=== PATIENT | male | born 1945 | race Caucasian/White ===

== ENCOUNTER 2019-11-27 19:33 | Emergency (ER) | payer MEDICARE, BC ==
[2019-11-27 19:39] VITALS: TEMP 98.9
[2019-11-27 19:52] LABS: Glucose,Whole Blood 135 mg/dL (75-99)
[2019-11-27] MEDS ORDERED: SODIUM CHLORIDE 0.9% 1,000 ML IV STA (19:54)
--- NOTE | 2019-11-27 20:08 | ED ---
Weakness HPI - General Chief complaint: Weakness Stated complaint: Stroke Symptoms Time Seen by Provider: 11/27/19 19:44 Source: patient Mode of arrival: wheelchair Limitations: no limitations - History of Present Illness Initial comments: 74-year-old male patient presents to the emergency department today for evaluation of generalized weakness. Patient has been becoming more progressively weak over the last 3-4 days. states that he was barely able to ambulate to the house with a walker today states that it took the patient 30 minutes to get from his chair to the bathroom which is a very short distance. States just prior to arrival patient was unable to get out of the chair on his own. Patient states that he feels generally weak. Denies any focal or unilateral weakness. states his appetite has been decreased has not been eating or drinking. States he has not had a bowel movement in the last 7 days. Patient denies any recent rash, fever, chills, cough, shortness of breath, chest pain, abdominal pain, nausea, vomiting, diarrhea, constipation, back pain, numbness, tingling, dizziness, hematuria, dysuria, urinary urgency, urinary frequency, headache, visual changes, or any other complaints. Patient did see his primary care physician yesterday and had labs drawn. Reportedly there were no major abnormalities. Patient was advised by his neurologist to be evaluated in the emergency department. Patient did have a fall at the beginning of October, patient was evaluated at [facility] and admitted over night. - Related Data Allergies Allergy/AdvReac Type Severity Reaction Status Date / Time No Known Allergies Allergy Verified 11/27/19 19:39 Review of Systems ROS Statement: Those systems with pertinent positive or pertinent negative responses have been documented in the HPI. ROS Other: All systems not noted in ROS Statement are negative. Past Medical History Past Medical History: Cancer, Diabetes Mellitus, Hypertension Additional Past Medical History / Comment(s): parkinsons, prostate cancer History of Any Multi-Drug Resistant Organisms: None Reported Additional Past Surgical History / Comment(s): prostate cancer surgery. Smoking Status: Never smoker Past Alcohol Use History: None Reported Past Drug Use History: None Reported General Exam Limitations: no limitations General appearance: alert, in no apparent distress, other (This is a well- developed, well-nourished adult male patient in no acute distress. Vital signs upon presentation are temperature 98.9F, pulse 83, respirations 18, blood pressure 125/82, pulse ox 97% on room air.) Eye exam: Present: normal appearance, PERRL, EOMI. Absent: scleral icterus, conjunctival injection, periorbital swelling ENT exam: Present: normal exam, normal oropharynx, mucous membranes moist Respiratory exam: Present: normal lung sounds bilaterally. Absent: respiratory distress, wheezes, rales, rhonchi, stridor Cardiovascular Exam: Present: regular rate, normal rhythm, normal heart sounds. Absent: systolic murmur, diastolic murmur, rubs, gallop, clicks Neurological exam: Present: alert, oriented X3, CN II-XII intact Expanded Motor strength exam: RUE: 2/1, LUE: 3, RLE: 3, LLE: 3 Eye Response: (4) open spontaneously Motor Response: (6) obeys commands Verbal Response: (5) oriented Psychiatric exam: Present: normal affect, normal mood Skin exam: Present: warm, dry, intact, normal color. Absent: rash Course Vital Signs 11/27/19 19:34 Temperature 98.9 F Pulse Rate 83 Respiratory 18 Rate Blood Pressure 125/82 O2 Sat by Pulse 97 Oximetry Medical Decision Making - Medical Decision Making 74-year-old male patient presents to the emergency department today for evaluation of generalized weakness. Physical examination did reveal right arm weakness and generalized weakness. Patient does have a history of Parkinson's disease, states his right arm deficit is related to this. Labs reviewed and did reveal elevated white blood cell count, elevated lactic acid, low ma gnesium. Low sodium. Lactic acid is all due to dehydration as patient has had decreased food and fluid intake over the last several days. He does not have any fever or infectious symptoms. X-ray shows no acute cardiopulmonary process. KUB was unremarkable. CT brain was obtained and did show evidence of acute on chronic subdural hemorrhage with no mass effect or midline shift. Patient will be transferred to [facility] with home, accepting physician is Dr. Ray, and is agreeable. - Lab Data Result diagrams: 11/27/19 19:50 11/27/19 19:50 Lab Results 11/27/19 11/27/19 11/27/19 Range/Units 19:49 19:50 19:50 WBC 13.3 H (3.8-10.6) k/uL RBC 5.02 (4.30-5.90) m/uL Hgb 15.5 (13.0-17.5) gm/dL Hct 45.0 (39.0-53.0) % MCV 89.6 (80.0-100.0) fL MCH 30.9 (25.0-35.0) pg MCHC 34.5 (31.0-37.0) g/dL RDW 12.8 (11.5-15.5) % Plt Count 184 (150-450) k/uL Neutrophils % 66 % Lymphocytes % 21 % Monocytes % 9 % Eosinophils % 0 % Basophils % 0 % Neutrophils # 8.8 H (1.3-7.7) k/uL Lymphocytes # 2.8 (1.0-4.8) k/uL Monocytes # 1.2 H (0-1.0) k/uL Eosinophils # 0.0 (0-0.7) k/uL Basophils # 0.0 (0-0.2) k/uL PT 10.8 (9.0-12.0) sec INR 1.0 (<1.2) APTT 23.5 (22.0-30.0) sec Sodium (137-145) mmol/L Potassium (3.5-5.1) mmol/L Chloride (98-107) mmol/L Carbon Dioxide (22-30) mmol/L Anion Gap mmol/L BUN (9-20) mg/dL Creatinine (0.66-1.25) mg/dL Est GFR (CKD-EPI)AfAm (>60 ml/min/1.73 sqM) Est GFR (CKD-EPI)NonAf (>60 ml/min/1.73 sqM) Glucose (74-99) mg/dL POC Glucose (mg/dL) 135 H (75-99) mg/dL POC Glu Roofer Helper ID Abbasi, Janine Plasma Lactic Acid Victor Manuel (0.7-2.0) mmol/L Calcium (8.4-10.2) mg/dL Magnesium (1.6-2.3) mg/dL Total Bilirubin (0.2-1.3) mg/dL AST (17-59) U/L ALT (4-49) U/L Alkaline Phosphatase (38-126) U/L Troponin I (0.000-0.034) ng/mL Total Protein (6.3-8.2) g/dL Albumin (3.5-5.0) g/dL 11/27/19 11/27/19 11/27/19 Range/Units 19:50 19:50 19:50 WBC (3.8-10.6) k/uL RBC (4.30-5.90) m/uL Hgb (13.0-17.5) gm/dL Hct (39.0-53.0) % MCV (80.0-100.0) fL MCH (25.0-35.0) pg MCHC (31.0-37.0) g/dL RDW (11.5-15.5) % Plt Count (150-450) k/uL Neutrophils % % Lymphocytes % % Monocytes % % Eosinophils % % Basophils % % Neutrophils # (1.3-7.7) k/uL Lymphocytes # (1.0-4.8) k/uL Monocytes # (0-1.0) k/uL Eosinophils # (0-0.7) k/uL Basophils # (0-0.2) k/uL PT (9.0-12.0) sec INR (<1.2) APTT (22.0-30.0) sec Sodium 130 L (137-145) mmol/L Potassium 4.4 (3.5-5.1) mmol/L Chloride 95 L (98-107) mmol/L Carbon Dioxide 22 (22-30) mmol/L Anion Gap 13 mmol/L BUN 16 (9-20) mg/dL Creatinine 0.61 L (0.66-1.25) mg/dL Est GFR (CKD-EPI)AfAm >90 (>60 ml/min/1.73 sqM) Est GFR (CKD-EPI)NonAf >90 (>60 ml/min/1.73 sqM) Glucose 118 H (74-99) mg/dL POC Glucose (mg/dL) (75-99) mg/dL POC Glu Roofer Helper ID Plasma Lactic Acid Victor Manuel 2.2 H* (0.7-2.0) mmol/L Calcium 9.3 (8.4-10.2) mg/dL Magnesium 1.4 L (1.6-2.3) mg/dL Total Bilirubin 1.1 (0.2-1.3) mg/dL AST 19 (17-59) U/L ALT 8 (4-49) U/L Alkaline Phosphatase 91 (38-126) U/L Troponin I <0.012 (0.000-0.034) ng/mL Total Protein 7.4 (6.3-8.2) g/dL Albumin 4.4 (3.5-5.0) g/dL - EKG Data -: EKG Interpreted by [facility] EKG Comments: EKG obtained at 1944 shows sinus rhythm with occasional PVCs. Ventricular rate is 64, AR interval 186, QRS duration 108, QT 396, QTc 408. No evidence of ST elevation or depression. - Radiology Data Radiology results: report reviewed, image reviewed CT brain without contrast was obtained. Report is reviewed in its entirety. Impression by Dr. 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 2 views of the chest are obtained. Report is reviewed in its entirety. Impression by Dr. Miguel shows poor inspiration. No active cardiopulmonary disease. KUB x-ray was obtained. Report was reviewed in its entirety. Impression by Dr. Miguel shows nonacute abdomen. Disposition Clinical Impression: Subdural hemorrhage Disposition: OTHER INSTITUTION NOT DEFINED Condition: Serious Referrals: Tana Vitale MD [Primary Care Provider] - 1-2 days - Out of Hospital Transfer - Req. Specs Out of Hospital Transfer - Requested Specifics: Other Emergency Center ([facility])
--- NOTE | 2019-11-27 20:25 | XR ---
EXAMINATION TYPE: XR KUB DATE OF EXAM: 11/27/2019 COMPARISON: NONE HISTORY: Weakness TECHNIQUE: 2 views FINDINGS: 2 views supine were obtained. Bowel gas pattern is normal. There is no sign of intestinal o bstruction or pneumoperitoneum. Fecal pattern is normal. There is no evidence of a mass. There are nu merous surgical clips at the floor the pelvis. There are no pathologic calcifications over the kidney s. IMPRESSION: Nonacute abdomen.
--- NOTE | 2019-11-27 20:27 | XR ---
EXAMINATION TYPE: XR chest 2V DATE OF EXAM: 11/27/2019 COMPARISON: NONE HISTORY: Weakness TECHNIQUE: 2 views FINDINGS: There is no heart failure nor confluent pneumonic infiltrate. Costophrenic angles are clear . There is poor inspiration. There are chest leads. Bony thorax is intact. IMPRESSION: Poor inspiration. No active cardiopulmonary disease.
[2019-11-27 21:12] LABS: Basophils % (A) 0 %; Eosinophils % (A) 0 %; HGB 15.5 gm/dL (13.0-17.5); Lymphocytes # (A) 2.8 k/uL (1.0-4.8); Lymphocytes % (A) 21 %; MCH 30.9 pg (25.0-35.0); MCHC 34.5 g/dL (31.0-37.0); MCV 89.6 fL (80.0-100.0); Mean Platelet Volume 8.1; Monocytes # (A) 1.2 k/uL (0-1.0); Monocytes % (A) 9 %; Neutrophils # (A) 8.8 k/uL (1.3-7.7); Neutrophils % (A) 66 %; Platelet Count 184 k/uL (150-450); RBC 5.02 m/uL (4.30-5.90); RDW 12.8 % (11.5-15.5); WBC 13.3 k/uL (3.8-10.6)
--- NOTE | 2019-11-27 21:12 | CT ---
EXAMINATION TYPE: CT brain wo con DATE OF EXAM: 11/27/2019 COMPARISON: HISTORY: Weakness. History of TIA. CT DLP: 1103.4 mGycm Automated exposure control for dose reduction was used. There is widening of the subdural space over both frontal and parietal lobe convexities. This is most ly low density fluid. There are smaller areas of higher attenuation that is suggestive of small amoun t of bilateral acute subdural hemorrhage. The fluid measures up to 1.4 cm in thickness. There is no m idline shift. There is cerebral cortical atrophy. Ventricles have normal size. There is no evidence o f posterior fossa mass. Calvarium is intact. IMPRESSION: Bilateral subdural hygromas with evidence of acute and chronic bilateral subdural hemorrhage. Exam wa s discussed with Dr. Abad at 9:15 PM.
[2019-11-27 21:18] LABS: ALT 8 U/L (4-49); AST 19 U/L (17-59); African American GFR (CKD) >90 (>60 ml/min/1.73 sqM); Albumin 4.4 g/dL (3.5-5.0); Alkaline Phosphatase 91 U/L (38-126); Anion Gap 13 mmol/L; Blood Urea Nitrogen 16 mg/dL (9-20); Calcium 9.3 mg/dL (8.4-10.2); Carbon Dioxide 22 mmol/L (22-30); Chloride 95 mmol/L (98-107); Glucose 118 mg/dL (74-99); Magnesium 1.4 mg/dL (1.6-2.3); Non-African American GFR(CKD) >90 (>60 ml/min/1.73 sqM); Potassium 4.4 mmol/L (3.5-5.1); Sodium 130 mmol/L (137-145); Total Bilirubin 1.1 mg/dL (0.2-1.3); Total Protein 7.4 g/dL (6.3-8.2)
[2019-11-27] MEDS ORDERED: MAGNESIUM SULFATE-D5W PMX 1 GM in DEXTROSE/WATER 1 100ML.BAG IVPB ONE (21:35)
[2019-11-27 21:49] LABS: Partial Thromboplastin Time 23.5 sec (22.0-30.0); Prothrombin Time 10.8 sec (9.0-12.0)
[2019-11-27] MEDS ORDERED: ONDANSETRON 4 MG/2 ML VIAL IVP STA (22:23)
[2019-11-27 22:49] VITALS: BP 148/87; PULSE 58; RESP 11
== END 2019-11-27 23:04 | disposition other institution (70) ==
LOC: EC 19:33
DX: I62.00 Nontraumatic subdural hemorrhage, unspecified (principal); I10 Essential (primary) hypertension; E11.9 Type 2 diabetes mellitus without complications; G20 Parkinson's disease; Z85.46 Personal history of malignant neoplasm of prostate
CPT/HCPCS: 36415; 80053; 83605; 83735; 84484; 85025; 85610; 85730; 71046; 74018; 70450; 99285; 96365; 96375; 96361; J2405; J3475